=== PATIENT | male | born 1950 | race Asian ===

== ENCOUNTER 2016-09-26 17:34 | Emergency (ER) | payer MEDICARE, OTHER ==
[~2016-09-26] VITALS: Ht 167.6 cm; Wt 61.2 kg
[~2016-09-26 17:34] MED LIST: TYLENOL
[2016-09-26 17:38] VITALS: BP 145/91
--- NOTE | 2016-09-26 20:40 | NUR ---
PT TAKEN TO OF
--- NOTE | 2016-09-26 20:47 | NUR ---
66Y/M PATIENT BIBA TO ED WITH C/O NECK PAIN S/P FALL YESTERDAY. PT STATES HE HIT BACK OF HEAD, NO LOC. PT HAS BEEN AMBULATING AT HOME TODAY AND DECIDED TO CALL 911. . DENIES N/V/D; SKIN IS PINK/WARM/DRY; AAOX4 WITH EVEN AND STEADY GAIT; LUNGS CLEAR BL; HR EVEN AND REGULAR; PT DENIES ANY FEVER, CP, SOB, OR COUGH AT THIS TIME; PATIENT STATES PAIN OF 5/10 AT THIS TIME; VSS; PATIENT POSITIONED FOR COMFORT; HOB ELEVATED; BEDRAILS UP X2; BED DOWN. ER MD MADE AWARE OF PT STATUS.
--- NOTE | 2016-09-26 21:04 | NUR ---
Dr. Marmolejo evaluating patient
--- NOTE | 2016-09-26 21:30 | NUR ---
PT RETURN FROM CT
--- NOTE | 2016-09-26 22:20 | NUR ---
Patient discharged with v/s stable. Written and verbal after care instructions given and explained. Patient verbalized understanding. Ambulatory with steady gait. All questions addressed prior to discharge. Advised to follow up with PMD.
[2016-09-26 22:21] VITALS: BP 135/85
== END 2016-09-26 22:20 | disposition home or self-care (01) ==
LOC: MED 17:34
DX: S06.0X0A Concussion without loss of consciousness, initial encounter (principal); S13.9XXA Sprain of joints and ligaments of unspecified parts of neck, initial encounter; M47.892 Other spondylosis, cervical region; I10 Essential (primary) hypertension; W07.XXXA Fall from chair, initial encounter; Y93.89 Activity, other specified; Y92.89 Other specified places as the place of occurrence of the external cause; Y99.8 Other external cause status

== ENCOUNTER 2022-06-29 06:39 | Inpatient (IN) | payer OTHER ==
[~2022-06-29] VITALS: Ht 175.3 cm; Wt 54.4 kg
[~2022-06-29 06:39] MED LIST changes: +MECL-303 PO; +PRO5 PO; -TYLENOL
[2022-06-29 06:41] VITALS: BP 149/67
--- NOTE | 2022-06-29 07:20 | NUR ---
REPORT TO GIANNA KRAMER
--- NOTE | 2022-06-29 07:20 | NUR ---
RECEIVED REPORT FROM TREY KRAMER, TRANSFER OF CARE AT THIS TIME, RECEIVED PT IN BED ON [facility] COUNSELOR A/OX4, VERBALLY RESPONSIVE, DENIES CHEST PAIN AT THIS TIME, HR IN THE 50S
[2022-06-29 07:27] LABS: BASOPHILS # (AUTO) 0.1 K/uL (0.00-0.22); BASOPHILS % (AUTO) 0.6 % (0.0-2.0); EOSINOPHILS # (AUTO) 0.4 K/uL (0-0.4); EOSINOPHILS % (AUTO) 5.4 % (0.0-4.0); HEMATOCRIT 45.4 % (36-52); HEMOGLOBIN 15.2 g/dL (12.0-18.0); LYMPHOCYTES # (AUTO) 2.2 K/uL (2.0-11.5); LYMPHOCYTES % (AUTO) 27.5 % (20.5-51.1); MEAN CORPUSCULAR HEMOGLOBIN 34 pg (27-31); MEAN CORPUSCULAR HGB CONC 33 g/dL (33-37); MEAN CORPUSCULAR VOLUME 101.8 fL (80-94); MONOCYTES # (AUTO) 0.5 K/uL (0.8-1.0); MONOCYTES % (AUTO) 6.7 % (1.7-9.3); NEUTROPHILS # (AUTO) 4.8 K/uL (1.8-7.7); NEUTROPHILS % (AUTO) 59.8 % (42.2-75.2); PLATELET COUNT (AUTO) 238 K/uL (140-450); RED BLOOD CELL COUNT(AUTO) 4.46 MIL/uL (4.20-6.10); RED CELL DISTRIBUTION WIDTH 13.5 % (11.6-13.7)
[2022-06-29 08:44] LABS: ALBUMIN 3.7 g/dL (3.4-5.0); ASPARTATE AMINOTRANSFERASE 23 U/L (15-37); CARBON DIOXIDE 30.5 mmol/L (21-32); CHLORIDE 103 mmol/L (98-107); CREATININE 0.7 mg/dL (0.6-1.3); GLUCOSE 93 mg/dL (74-106); POTASSIUM 4.5 mmol/L (3.5-5.1); SODIUM SERUM 142 mmol/L (136-145); TOTAL BILIRUBIN 0.6 mg/dL (0.0-1.0); UREA NITROGEN, BLOOD 16 mg/dL (7-18)
[2022-06-29] MEDS ORDERED: ASPIRIN 325 MG TAB PO ONE (09:00)
[2022-06-29] MEDS ORDERED: MORPHINE SULFATE 2 MG/ML SYR IVP PRN (09:30)
[2022-06-29] MEDS ORDERED: ACETAMINOPHEN 325 MG TAB PO PRN (09:30)
[2022-06-29] MEDS ORDERED: POTASSIUM CHLORIDE 10 MEQ TABER PO PRN (09:30)
[2022-06-29] MEDS ORDERED: LORazepam 2 MG/ML VIAL IVP PRN (09:30)
[2022-06-29] MEDS ORDERED: ZOLPIDEM 10 MG TAB PO PRN (09:30)
[2022-06-29] MEDS ORDERED: ONDANSETRON 4 MG/2 ML VIAL IVP PRN (09:30)
[2022-06-29] MEDS ORDERED: DOCUSATE SODIUM 100 MG GELCAP PO PRN (09:30)
[2022-06-29] MEDS ORDERED: MAG SULF 2000 MG/WATER PREMIX 50 ML IV PRN (09:30)
--- NOTE | 2022-06-29 09:56 | NUR ---
DR HASTINGS AT BEDSIDE
--- NOTE | 2022-06-29 10:53 | NUR ---
Patient will be admitted to care of DR HASTINGS. Admited to TELEMETRY. Will go to room 123B. Belongings list completed. Report to OMAR KRAMER.
[2022-06-29 10:55] VITALS: BP 137/84
--- NOTE | 2022-06-29 10:55 | NUR ---
RECEIVED PATIENT FROM ER NURSE VIA W/C. PATIENT ADMITTED FOR CHEST PAIN. PT IS AOX4, ABLE TO MAKE NEEDS KNOWN. RESPIRATIONS EVEN AND UNLABORED. ON ROOM AIR AND NO DISTRESS NOTED. SKIN IS WARM, DRY, AND INTACT. IV SITE ON RAC 18G. SALINE LOCKED. ABD IS SOFT, FLAT, AND NON-DISTENDED. BOWEL SOUNDS ACTIVE IN ALL QUADRANTS. C/C OF CHEST PAIN 3/10 BUT PAIN IS TOLERABLE. AMBULATORY. PLAN OF CARE DISCUSSED. SAFETY PRECAUTIONS IN PLACE. CALL LIGHT WITHIN REACH. WILL CONTINUE TO MONITOR.
[2022-06-29] MEDS ORDERED: PRO5 PO (14:12)
[2022-06-29 14:54] VITALS: BP 132/79
--- NOTE | 2022-06-29 15:15 | NUR ---
ENDORSED DISCHARGE INSTRUCTIONS TO PATIENT. PT VERBALIZED UNDERSTANDING AND SIGNED DISCHARGE FORMS.
--- NOTE | 2022-06-29 15:27 | NUR ---
PT DISCHARGED OFF THE UNIT. IV SITE CATH REMOVED. PT WAS STABLE. PRIOR TO DISCHARGE.
[2022-06-29] MEDS ORDERED: MIDODRINE 5 MG TAB PO SCH (19:00)
[2022-06-30] MEDS ORDERED: ATORVASTATIN 20 MG TAB PO SCH (09:00)
[2022-06-30] MEDS ORDERED: ASPIRIN 81 MG TAB.CHEW PO SCH (09:00)
== END 2022-06-29 15:25 | disposition home or self-care (01) | DRG 313 ==
LOC: MED 06:39 → MTU 09:26 → MMU 10:41 → MTU 10:42
PROVIDERS: ADMIT Family Medicine; ATTEND Family Medicine
DX: R07.89 Other chest pain (principal); I10 Essential (primary) hypertension; R00.1 Bradycardia, unspecified; Z20.822 Contact with and (suspected) exposure to COVID-19; R42 Dizziness and giddiness
CPT/HCPCS: 36415; 71045; 80053; 83880; 84484; 85025; 85379; 87081; 93005; 99285; Q0092